=== PATIENT | female | born 1970 | race Caucasian/White ===

== ENCOUNTER → 2021-11-28 | Outpatient (CLI) | payer OTHER ==
--- NOTE | 2021-11-28 13:08 | RAD ---
PA chest and left rib series 3 views: Reason for examination: Left rib pain after fall. The heart size is normal. Mediastinum is unremarkable. Lung malagon are clear. No acute bony abnormali ties evident. 3 views of the left ribs show no evidence of fracture. The bone density is normal. IMPRESSION: No acute cardiopulmonary disease. No left rib abnormalities evident. Electronically signed by: Manju León MD (11/28/2021 1:06 PM) [facility]
== END ==
LOC: RAD 11:15
PROVIDERS: ATTEND Physician Assistant
DX: R07.81 Pleurodynia (principal)
CPT/HCPCS: 71101